=== PATIENT | female | born 1995 | race Two or more races ===

== ENCOUNTER 2025-05-10 21:38 | Emergency (ER) | payer MEDICAID, SELFPAY ==
[2025-05-10 21:41] VITALS: BMI 51.2
[2025-05-10 22:06] VITALS: BP 115/72; PULSE 73; RESP 18; TEMP 36.6; O2SAT 100
--- NOTE | 2025-05-11 00:06 | XR_ITS ---
Examination: Foot, left, 3 views Technique: AP, oblique, lateral views foot, 3 views Date and time of exam: May 11, 2025, 0020 hours INDICATIONS: Left foot pain several weeks, severe today FINDINGS: Adequate bone density. No fracture or dislocation No cortical bone destruction Tiny plantar posterior bony calcaneal spurs Soft tissue swelling dorsum of the foot IMPRESSION: Soft tissue swelling dorsum of the foot No fracture or dislocation
--- NOTE | 2025-05-11 00:06 | PD.EDANKLE ---
Lower Extremity Injury RME/HPI General Chief Complaint: Ankle/Foot Injury Stated Complaint: L ANKLE PAIN AND SWELLING Time Seen by Provider: 05/10/25 21:48 Arrival date/time: 05/10/25 21:38 29-year-old female reports with complaints of left foot pain for several weeks and then today severe left foot pain. Patient denies any injuries numbness tingling or decreased range of motion of foot. Patient states that she has not taken any pain medicine she is concerned for possible fracture Limitations: no limitations Related Data Previous Rx's ?Medication ?Instructions ?Recorded naproxen 500 mg tablet (Naprosyn) 500 mg PO BID #30 tabs 04/04/22 naproxen 500 mg tablet 500 mg PO BID PRN pain #30 tabs 05/11/23 Allergies Allergy/AdvReac Type Severity Reaction Status Date / Time No Known Allergies Allergy Verified 05/10/25 21:46 Review of Systems Musculoskeletal Musculoskeletal: Reports arthralgias, Denies deformity, Denies joint swelling, Denies numbness and Denies tingling Integumentary/Breasts Skin/Breast: Denies unusual bruising and Denies wounds Neurologic Neurologic: Denies numbness and Denies tingling Past Medical History Past Medical History CARDIAC: Negative Congestive Heart Failure RESPIRATORY: Negative Chronic Obstructive Pulmonary Disease (COPD) GENITOURINARY: Negative Renal Disease ENDOCRINE: Negative Diabetes Mellitus Type 1 or Diabetes Mellitus Type 2 Social History SMOKING STATUS: Current some day smoker ED Exam General Limitations: Present no limitations General appearance: Present alert and in no apparent distress Expanded Lower Extremity Exam Ankle exam: Present normal inspection and full ROM Foot/toe exam: Present normal inspection, full ROM and tenderness (Base fifth metatarsal); Absent swelling, laceration, ecchymosis, deformity or crepitus Neurological Exam Neurological exam: Present alert, oriented X3 and CN II-XII intact Psychiatric Psychiatric exam: Present normal affect and normal mood Skin Skin exam: Present warm, dry, intact and normal color Course Quality Measures none Orders Category Date Time Status XR foot comp LT min 3V Stat Exams 05/11/25 00:06 Taken Vital Signs Vital signs: Vital Signs Temperature 98 F 05/10/25 22:06 Pulse Rate 73 05/10/25 22:06 Respiratory Rate 18 05/10/25 22:06 Blood Pressure 115/72 05/10/25 22:06 Pulse Oximetry (%) 100 05/10/25 22:06 Oxygen Delivery Method Room Air 05/10/25 22:06 Extremity Injury, Lower Patient data External records reviewed:: None Clinical information provided by:: patient Social determinants that could affect healthcare access:: none Patient has the following chronic illnesses:: none How is presenting disease/condition affected by chronic disease/condition?: no chronic disease Evaluation data The following diagnostics were reviewed and interpreted by me:: radiology exam(s) Lab and/or radiology exams considered but not ordered:: none Interpretation Summary: Negative for fractures or dislocations Medications / Prescriptions Medications or Prescriptions considered but not ordered:: None Medication administrations:: None Consultations Consultation(s) initiated? (list below): No Diagnosis Most likely diagnosis given after review of the tests above:: Left foot sprain Admission Indicated Admission indicated?: not indicated Admission Request Was there a request for admission?: No Disposition Plan Disposition Plan: Discharge Discharge Attestation Discharge Attestation: The patient and all family members were given an opportunity to ask questions and understood the discharge instructions. Discharge instructions specifically effects, indications for sooner follow up or return to the emergency department, and the expected course of current diagnosis. Patient condition: Stable Discharge Plan Plan Patient Disposition: HOME (Self Care) Prescriptions/Referrals Prescriptions/Med Rec: No Action naproxen 500 mg tablet 500 mg PO BID PRN (Reason: pain) Qty: 30 0RF naproxen [Naprosyn] 500 mg tablet 500 mg PO BID Qty: 30 0RF Problem List Clinical Impression: Sprain of foot, left Patient/Caregiver Discharge Instructions Discharge Activity: activity as tolerated Education Materials: ED Foot Sprain Additional Instructions: Your x-rays did not show any fractures or dislocations you have a small sprain to the ankle you should apply ice with a towel for 20 minutes 2 or 3 times a day to help with pain and take [id number] medication such as Tylenol or ibuprofen. You should also wear shoes that support the foot and the ankle and follow-up with your primary care provider if no improvement in 3 days Print Language: Japanese Stand Alone Forms: Robina Award Info., Patient Portal Info Letter
== END 2025-05-11 01:34 | disposition home or self-care (01) ==
LOC: SERX 05-11 01:00
PROVIDERS: Emergency Provider Physician Assistant
DX: S93.602A Unspecified sprain of left foot, initial encounter (principal); X50.0XXA Overexertion from strenuous movement or load, initial encounter
CPT/HCPCS: 73630; 99282